=== PATIENT | female | born 1935 | race Caucasian/White ===

== ENCOUNTER 2021-04-17 10:40 | Outpatient (CLI) | payer MEDICARE, OTHER | END 2021-04-17 23:59 | disposition home or self-care (01) | LOC: CT 10:40 | PROVIDERS: ATTEND Internal Medicine Interventional Cardiology | DX: I25.10 Atherosclerotic heart disease of native coronary artery without angina pectoris (principal); R91.1 Solitary pulmonary nodule; J84.10 Pulmonary fibrosis, unspecified; I70.0 Atherosclerosis of aorta; E04.2 Nontoxic multinodular goiter | CPT/HCPCS: 71250-TC ==